=== PATIENT | female | born 1975 | race African-American/Black ===

== ENCOUNTER 2016-10-09 15:25 | Emergency (ER) | payer SELFPAY ==
[~2016-10-09] VITALS: Ht 160 cm; Wt 127.0 kg
--- NOTE | 2016-10-09 15:25 | NUR ---
1519--Dr. Sanchez evaluated patient.
--- NOTE | 2016-10-09 15:25 | NUR ---
1518--Patient was BIBA at this time.
[2016-10-09 15:28] VITALS: BP 173/111
[2016-10-09 15:37] VITALS: BP 173/111
--- NOTE | 2016-10-09 15:37 | NUR ---
Patient does not wish to proceed with medical care recommended by DR. MENDEZ. Patient given information related to possible complications, up to and including , which could occur as a result of leaving hospital at this time. Patient verbalizes understanding of risks involved leaving against medical advice. Patient has signed AMA form.
== END 2016-10-09 15:37 | disposition left against medical advice (07) ==
LOC: MED 15:25
DX: R07.89 Other chest pain (principal); I10 Essential (primary) hypertension; J45.909 Unspecified asthma, uncomplicated; I50.9 Heart failure, unspecified; F03.90 Unspecified dementia, unspecified severity, without behavioral disturbance, psychotic disturbance, mood disturbance, and anxiety; E11.9 Type 2 diabetes mellitus without complications
CPT/HCPCS: 99283